=== PATIENT | female | born 1995 | race Caucasian/White ===

== ENCOUNTER 2017-07-11 01:44 | Emergency (ER) | payer MEDICAID ==
[2017-07-11 01:56] VITALS: BP 108/63; PULSE 64; RESP 16; TEMP 98.1; O2SAT 99
--- NOTE | 2017-07-11 02:42 | ED PDOC ---
HPI: Allergic Reaction Time Seen by Provider: 07/11/17 02:06 Chief Complaint (Nursing): Allergic Reaction Chief Complaint (Provider): Rash for a few hours, improved with benadryl at home History Per: Patient History/Exam Limitations: no limitations Onset/Duration Of Symptoms: Hrs Additional Complaint(s): Pt reports itchy rash on the face and UE. Pt states the areas are coming and going. Pt states she took benadryl becuase it was itchy when a family member told her it was hives so she came in. Pt denies new foods, lotion, etc. Pt denies SOB, chest pain, tongue or lip swelling. Past Medical History Reviewed: Historical Data, Nursing Documentation, Vital Signs Vital Signs: Last Vital Signs Temp 98.1 F 07/11/17 01:50 Pulse 64 07/11/17 01:50 Resp 16 07/11/17 01:50 BP 108/63 07/11/17 01:50 Pulse Ox 99 07/11/17 01:50 - Medical History PMH: No Chronic Diseases - Surgical History Surgical History: No Surg Hx - Family History Family History: States: Unknown Family Hx - Home Medications Home Medications: Ambulatory Orders Medication Instructions Recorded Naproxen [Naprosyn Tab] 250 mg PO Q12 #14 tab 12/08/15 predniSONE [predniSONE Tab] 20 mg PO DAILY #12 tab 07/11/17 - Allergies Allergies/Adverse Reactions: Allergies Allergy/AdvReac Type Severity Reaction Status Date / Time No Known Allergies Allergy Verified 12/07/15 23:27 Review of Systems ROS Statement: Except As Marked, All Systems Reviewed And Found Negative Constitutional: Negative for: Fever, Chills Respiratory: Negative for: Cough, Shortness of Breath Physical Exam - Reviewed Nursing Documentation Reviewed: Yes Vital Signs Reviewed: Yes - Physical Exam Appears: Positive for: Well, Non-toxic, No Acute Distress Head Exam: Positive for: ATRAUMATIC, NORMAL INSPECTION, NORMOCEPHALIC Skin: Positive for: Warm. Negative for: Normal Color ((+) rash, erythematous blanching with varies shape and sizes, defined border ) Eye Exam: Positive for: Normal appearance ENT: Positive for: Normal ENT Inspection Neck: Positive for: Normal, Painless ROM Cardiovascular/Chest: Positive for: Regular Rate, Rhythm Respiratory: Positive for: CNT, Normal Breath Sounds Back: Positive for: Normal Inspection Extremity: Positive for: Normal ROM Neurologic/Psych: Positive for: Alert, Oriented - ECG O2 Sat by Pulse Oximetry: 99 Disposition - Clinical Impression Clinical Impression: Urticaria - Patient ED Disposition Is Patient to be Admitted: No Counseled Patient/Family Regarding: Diagnosis, Need For Followup, Rx Given - Disposition Disposition: Routine/Home Disposition Time: 02:39 Condition: GOOD Prescriptions: predniSONE [predniSONE Tab] 20 mg PO DAILY #12 tab Instructions: Urticaria (ED)
== END 2017-07-11 02:45 | disposition home or self-care (01) ==
LOC: H.ER 01:44
DX: L50.9 Urticaria, unspecified (principal)
CPT/HCPCS: 96372; 99282; J2930

== ENCOUNTER 2017-07-11 21:37 | Emergency (ER) | payer MEDICAID ==
[2017-07-11 22:13] VITALS: BP 123/66; PULSE 92; RESP 18; TEMP 98.8; O2SAT 97
[2017-07-11] MEDS ORDERED: Sodium Chloride 0.9% 1,000 ML IV STA (22:46)
[2017-07-11] MEDS ORDERED: DiphenhydrAMINE 50 mg/ml Inj IVP STA (22:46)
--- NOTE | 2017-07-11 22:49 | ED PDOC ---
HPI: Allergic Reaction Time Seen by Provider: 07/11/17 22:27 Chief Complaint (Nursing): Allergic Reaction Chief Complaint (Provider): allergic reaction History Per: Patient History/Exam Limitations: no limitations Associated Symptoms: Skin Rash, Itching. denies: Swelling, Dyspnea, Trouble Swallowing, Dizziness, Redness, Chest Pain Home/EMS Treatment: Benadryl, Steroids Additional Complaint(s): 22yo F in seen in Ed yesterday for allergic reaction and given IM solumedrol and d.c with Rx for steroids now back for acute urticaria after eating pizza. negative for: swelling to lips, eyes, hands, feet, SOB, chest pain, dizziness, abd pain, throat swelling or hoarseness. Past Medical History Reviewed: Historical Data, Nursing Documentation, Vital Signs Vital Signs: Last Vital Signs Temp 98.8 F 07/11/17 22:10 Pulse 92 H 07/11/17 22:10 Resp 18 07/11/17 22:10 BP 123/66 07/11/17 22:10 Pulse Ox 97 07/11/17 22:10 - Medical History PMH: No Chronic Diseases - Family History Family History: States: Unknown Family Hx - Home Medications Home Medications: Ambulatory Orders Medication Instructions Recorded Naproxen [Naprosyn Tab] 250 mg PO Q12 #14 tab 12/08/15 Cetirizine HCl [Zyrtec] 10 mg PO DAILY #30 cap 07/11/17 DiphenhydrAMINE [Benadryl] 25 mg PO Q6 #20 cap 07/11/17 Famotidine [Pepcid] 20 mg PO BID #16 tab 07/11/17 predniSONE [predniSONE Tab] 20 mg PO DAILY #12 tab 07/11/17 - Allergies Allergies/Adverse Reactions: Allergies Allergy/AdvReac Type Severity Reaction Status Date / Time No Known Allergies Allergy Verified 12/07/15 23:27 Review of Systems ROS Statement: Except As Marked, All Systems Reviewed And Found Negative Skin: Positive for: Rash Physical Exam - Reviewed Nursing Documentation Reviewed: Yes Vital Signs Reviewed: Yes - Physical Exam Appears: Positive for: Non-toxic, No Acute Distress Head Exam: Positive for: ATRAUMATIC, NORMAL INSPECTION, NORMOCEPHALIC Skin: Positive for: Warm, Rash (uticaria noted to body diffuse. no swelling noted to extremeties. ) Eye Exam: Positive for: Normal appearance ENT: Positive for: Normal ENT Inspection Neck: Positive for: Normal, Painless ROM Cardiovascular/Chest: Positive for: Regular Rate, Rhythm Respiratory: Positive for: CNT, Normal Breath Sounds Gastrointestinal/Abdominal: Positive for: Normal Exam, Bowel Sounds, Soft. Negative for: Tenderness Extremity: Positive for: Normal ROM. Negative for: Swelling Lymphatic: Positive for: Normal Exam Neurologic/Psych: Positive for: Alert, Oriented - ECG O2 Sat by Pulse Oximetry: 97 - Progress ED Course And Treament: considering pt was seen in ED yesterday with IM dose of solumedrol 125mg, took 60mg tabs of prednisone at home pt will get and will be re-eval. Orders Category Date Time Status DiphenhydrAMINE [Benadryl] Med 07/11/17 22:46 Stat 25 mg IVP STAT STA Famotidine [Pepcid] Med 07/11/17 22:46 Stat 20 mg IVP STAT STA Sodium Chloride 0.9% 1,000 ml Med 07/11/17 22:46 Ordered IV 1,000 mls/hr Disposition - Clinical Impression Clinical Impression: Urticaria - Patient ED Disposition Is Patient to be Admitted: No Counseled Patient/Family Regarding: Diagnosis, Need For Followup, Rx Given - Disposition Referrals: [facility] [Outside] Disposition: Routine/Home Disposition Time: 23:42 Condition: STABLE Prescriptions: Cetirizine HCl [Zyrtec] 10 mg PO DAILY #30 cap DiphenhydrAMINE [Benadryl] 25 mg PO Q6 #20 cap Famotidine [Pepcid] 20 mg PO BID #16 tab Instructions: Urticaria (ED) Forms: [employer] (Lithuanian) Medical Decision Making Medical Decision Making: pt with significant improvement and complete resolve of urticaria. pt will be d.c with instructions to take zyterc in the AM, pepcid BID and Benadryl as needed with f/u with senior ui ux developer for food allergy testing. pt understands and agrees/ advised she may develop rash or utirica again. monitor or keep diary of allergy
== END 2017-07-11 23:59 | disposition home or self-care (01) ==
LOC: H.ER 21:37
DX: L50.9 Urticaria, unspecified (principal)
CPT/HCPCS: 96374; 96375; 99282; J1200; J7040

== ENCOUNTER 2017-11-15 08:27 | Emergency (ER) | payer MEDICAID ==
[2017-11-15 08:34] VITALS: BP 109/67; PULSE 87; RESP 16; TEMP 98.4; O2SAT 98
[2017-11-15 08:35] VITALS: BMI 25.9
[2017-11-15] MEDS ORDERED: Sodium Chloride 0.9% 1,000 ML IV STA (09:11)
--- NOTE | 2017-11-15 09:14 | ED PDOC ---
HPI: Abdomen Time Seen by Provider: 11/15/17 09:00 Chief Complaint (Nursing): Abdominal Pain History Per: Patient Onset/Duration Of Symptoms: Days (1) Current Symptoms Are (Timing): Still Present Severity: Moderate Pain Scale Rating Of: 4 Location Of Pain/Discomfort: Epigastric Quality Of Discomfort: Sharp Associated Symptoms: Nausea, Vomiting. denies: Fever, Diarrhea, Urinary Symptoms Exacerbating Factors: None Alleviating Factors: None Additional Complaint(s): Sharp epigastric abd pain assoc with nausea and vomiting since this AM. No fever or diarrhea. No urinary sxs. Past Medical History Vital Signs: Last Vital Signs Temp 98.4 F 11/15/17 08:34 Pulse 87 11/15/17 08:34 Resp 16 11/15/17 08:34 BP 109/67 11/15/17 08:34 Pulse Ox 98 11/15/17 09:13 - Medical History PMH: Gastritis - Family History Family History: States: Unknown Family Hx - Home Medications Home Medications: Ambulatory Orders Medication Instructions Recorded Naproxen [Naprosyn Tab] 250 mg PO Q12 #14 tab 12/08/15 Cetirizine HCl [Zyrtec] 10 mg PO DAILY #30 cap 07/11/17 DiphenhydrAMINE [Benadryl] 25 mg PO Q6 #20 cap 07/11/17 Famotidine [Pepcid] 20 mg PO BID #16 tab 07/11/17 predniSONE [predniSONE Tab] 20 mg PO DAILY #12 tab 07/11/17 Pantoprazole Sodium [Protonix] 40 mg PO DAILY #30 tablet. 11/15/17 - Allergies Allergies/Adverse Reactions: Allergies Allergy/AdvReac Type Severity Reaction Status Date / Time corn Allergy RASH Verified 11/15/17 08:44 Review of Systems ROS Statement: Except As Marked, All Systems Reviewed And Found Negative Constitutional: Negative for: Fever Gastrointestinal: Positive for: Nausea, Vomiting, Abdominal Pain Genitourinary Female: Negative for: Dysuria, Frequency Physical Exam - Reviewed Nursing Documentation Reviewed: Yes Vital Signs Reviewed: Yes - Physical Exam Appears: Positive for: Non-toxic, No Acute Distress Head Exam: Positive for: ATRAUMATIC, NORMAL INSPECTION, NORMOCEPHALIC Skin: Positive for: Normal Color, Warm, DRY Eye Exam: Positive for: EOMI, Normal appearance, PERRL ENT: Positive for: Normal ENT Inspection Neck: Positive for: Normal, Painless ROM Cardiovascular/Chest: Positive for: Regular Rate, Rhythm Respiratory: Positive for: CNT, Normal Breath Sounds Gastrointestinal/Abdominal: Positive for: Bowel Sounds, Soft, Tenderness ( epigastric) Back: Positive for: Normal Inspection. Negative for: L CVA Tenderness, R CVA Tenderness Extremity: Positive for: Normal ROM Neurologic/Psych: Positive for: Alert, Oriented - Laboratory Results Result Diagrams: 11/15/17 09:00 11/15/17 09:00 - ECG O2 Sat by Pulse Oximetry: 98 Disposition - Clinical Impression Clinical Impression: Gastritis - Patient ED Disposition Is Patient to be Admitted: No - Disposition Referrals: Aletha COSTELLO,MD Niru [Medical Doctor] - Disposition: Routine/Home Disposition Time: 13:16 Condition: FAIR Prescriptions: Pantoprazole Sodium [Protonix] 40 mg PO DAILY #30 tablet. Instructions: Gastritis (ED) Forms: [facility] (Indonesian)
[2017-11-15 09:26] LABS: BASO % 0.2 % (0.0-2.0); EOS % 0.2 % (0.0-4.0); HEMOGLOBIN 13.1 g/dL (12.0-16.0); LYMPH % 12.1 % (20.0-40.0); MEAN CELL VOLUME 90.6 fl (81.0-99.0); MEAN CORPUSCULAR HEMOGLOBIN 30.3 pg (27.0-31.0); MEAN CORPUSCULAR HGB CONC 33.5 g/dL (33.0-37.0); MEAN PLATELET VOLUME 7.6 fl (7.2-11.7); MONO # 0.4 K/uL (0.0-0.8); MONO % 4.6 % (0.0-10.0); NEUT # 7.1 K/uL (1.8-7.0); NEUT % 82.9 % (50.0-75.0); RBC 4.33 Mil/uL (3.80-5.20); RED CELL DISTRIBUTION WIDTH 12.7 % (11.5-14.5); WHITE BLOOD COUNT 8.5 K/uL (4.8-10.8)
[2017-11-15 09:39] LABS: ALB/GLOB RATIO 1.4 (1.0-2.1); ALBUMIN 4.5 g/dL (3.5-5.0); ALT/SGPT 35 U/L (9-52); AST/SGOT 25 U/L (14-36); BLOOD UREA NITROGEN 8 mg/dl (7-17); CALCIUM 8.7 mg/dL (8.4-10.2); GFR AFRICAN-AMERICAN > 60; GFR NON-AFRICAN AMERICAN > 60; LIPASE 54 U/L (23-300)
[2017-11-15] MEDS ORDERED: Iohexol 300 100 ML IJ ONE (10:57)
[2017-11-15] MEDS ORDERED: Sodium Chloride 0.9% 50 ML IV ONE (10:58)
--- NOTE | 2017-11-15 12:40 | CT ---
PROCEDURE: CT Abdomen and Pelvis with contrast HISTORY: abd pain COMPARISON: None. TECHNIQUE: Contrast dose: 95 mL Omnipaque 300 Radiation dose: Total exam DLP = 364.37 mGy-cm. This CT exam was performed using one or more of the following dose reduction techniques: Automated exposure control, adjustment of the mA and/or kV according to patient size, and/or use of iterative reconstruction technique. FINDINGS: LOWER THORAX: Unremarkable. LIVER: Unremarkable. No gross lesion or ductal dilatation. GALLBLADDER AND BILE DUCTS: Unremarkable. PANCREAS: Unremarkable. No gross lesion or ductal dilatation. SPLEEN: Unremarkable. ADRENALS: Unremarkable. No mass. KIDNEYS AND URETERS: Unremarkable. No hydronephrosis. No solid mass. VASCULATURE: Unremarkable. No aortic aneurysm. BOWEL: Unremarkable. No obstruction. No gross mural thickening. APPENDIX: Normal appendix. PERITONEUM: Small amount of fluid in cul-de-sac. No generalized ascites. LYMPH NODES: Shotty subcentimeter retroperitoneal nodes. No enlarged is retroperitoneal or pelvic lymph nodes. BLADDER: Unremarkable. REPRODUCTIVE: Unremarkable uterus. BONES: No acute fracture. OTHER FINDINGS: None. IMPRESSION: Small amount of fluid in cul-de-sac, nonspecific. Otherwise unremarkable examination.
== END 2017-11-15 13:39 | disposition home or self-care (01) ==
LOC: H.ER 08:27
DX: K29.70 Gastritis, unspecified, without bleeding (principal)
CPT/HCPCS: 74177; 80053; 81025; 83690; 85025; 96374; 96375; 99283; J2270; J2405; J7040; Q9967